=== PATIENT | male | born 1970 | race Caucasian/White ===

== ENCOUNTER 2023-05-14 10:59 | Outpatient (CLI) | payer MEDICAID, SELFPAY ==
--- NOTE | 2023-05-14 11:08 | ECG_ITS ---
Measurements Intervals [place] Rate: 79 P: 50 NH: 132 QRS: -39 QRSD: 107 T: 73 QT: 381 QTc: 437 Interpretive Statements SINUS RHYTHM MARKED LEFT AXIS DEVIATION [QRS AXIS < -30] NO PREVIOUS ECG AVAILABLE FOR COMPARISON Electronically Signed On 05-14-2023 16:27:57 CDT by Tyler Zamudio M.D.
== END 2023-05-14 11:00 | disposition home or self-care (01) ==
PROVIDERS: Visit Provider Surgery
DX: Z01.818 Encounter for other preprocedural examination (principal); R93.1 Abnormal findings on diagnostic imaging of heart and coronary circulation; F17.210 Nicotine dependence, cigarettes, uncomplicated
CPT/HCPCS: 93005

== ENCOUNTER 2023-05-17 02:56 | Day surgery (SDC) | payer MEDICAID, SELFPAY ==
[2023-05-10 12:34] VITALS: BMI 30.2
--- NOTE | 2023-05-10 12:40 | PC.NURSE ---
Report to the Outpatient Waiting Room, entrance under the green pavilion located off [facility], at time _0600_ on date _[id number]_. Planned Procedure Time: _0730_. Time changes happen often and if your time is changed the preop area will call you the afternoon before. - You and your visitor will be asked to self-screen and do not enter if you have any COVID symptoms. - A mask is optional within the hospital at this time. Patients may have clear liquids (water, carbonated beverages, clear teas, apple juice) until 3 hours prior to surgery with a maximum of 20 ounces. - No food from midnight until time of surgery Take the following medications with a SIP of water the morning of surgery: ___None DO NOT STOP ANY OF YOUR OTHER PRESCRIPTION MEDICATIONS PRIOR TO SURGERY ?EXCEPT THE FOLLOWING Medications to discontinue per physician None Date to take last dose Please no make-up, nail german, hairspray, perfume, deodorant, or body powder the day of surgery. No jewelry (including any body piercings) or valuables the day of surgery, leave them at home. Please take a shower or bath the night before, or the morning of, surgery with an antibacterial soap. Wear comfortable, loose fitting clothing. - Jewelry must be removed prior to entering the operating room. Rings and piercings that are not removed may be cut off. - The hospital will not accept responsibility for valuables. - Please leave all valuables, including medications, at home the day of surgery. If you are going home after surgery, a licensed driver examiner must drive you home. - NO public transportation without another adult if you receive anesthesia. - We recommend that an adult stay with you for 24 hours following discharge. - We also recommend that you do not drive, make important decision, drink alcoholic beverages, or take any drugs that were not prescribed by your health care provider for at least 24 hours after your discharge time. Follow any additional instructions given to you from your surgeon. If you or anyone in your household have experienced Covid symptoms in the past week, please notify your surgeon or the nurse liaison at the phone number below for possible testing. Telephone instructions given to _Patient__and asked if any additional questions and then verbalized understanding. Patient advised to call surgeon office or pre surgery nurse liaison [phone] if any additional questions.
--- NOTE | 2023-05-16 14:03 | WPDANESEPPF ---
Anes - Initial Pre Proc Eval Procedure: Operation Date: 05/17/23 07:30 Proposed Procedures p Open Right Inguinal Hernia Repair with Mesh - Poncho Macias MD Date/Time: 05/16/23 14:03 Surgeon: Poncho Macias MD Pre Op Diagnosis: Rt Ing Hernia Patient Data Age: 53 Gender: M Height: 1.78 m Weight: 95.5 kg Allergies Allergy/AdvReac Type Severity Reaction Status Date / Time Penicillins Allergy Unknown Rash Verified 05/10/23 12:33 Home Medications Medication Instructions Recorded Confirmed Type No Home Medications 05/08/23 05/10/23 History Patient hx anesthesia problems: none Family hx anesthesia problems: none Results Review: All pre-operative results and documents have been reviewed as part of the pre-operative evaluation. [facility] Surgical History Surgical History (Updated 05/08/23 @ 14:21 by Camille Gordon MA) History of gastric surgery Social History Social History (Updated 05/08/23 @ 14:22 by Camille Gordon MA) Smoking packs per day: 1 Smoking cigarettes per day: 20.0 Years smoked: 30 Smoking pack-years: 30.00 Smoking status: Former smoker Tobacco type: cigarettes Smoking end date: 05/10/17 Alcohol intake: current Living arrangements: with family Spiritual care concerns: No Anes - Eval Final PreProcedure Day of Procedure 05/16/23 14:03 Patient weight: obese Heart: regular rate and rhythm Lungs: clear to auscultation Airway: Mallampati scale class II Neurological: alert and oriented Last oral intake: >/= 8 hours ASA classification: II Emergent: no Anesthetic plan: proceed Anesthesia type and monitoring: general LMA and standard monitoring Results Review: All pre-operative results and documents have been reviewed as part of the pre-operative evaluation. Informed Consent: The patient's anesthetic plan and its attendant risks and benefits were discussed with the patient/family/POA. Questions were solicited and answers provided to the satisfaction of the patient/family/POA.
[2023-05-17] VITALS (8 sets, daily range): BP systolic 121–138; BP diastolic 85–98; PULSE 61–65; RESP 12–19; TEMP 36.4–36.6; O2SAT 93–100
--- NOTE | 2023-05-17 06:59 | SUR.PREOP ---
patient and family aware of about one and a half hour delay starting today, understanding stated by both
[2023-05-17] MEDS: ACETAMINOPHEN 500 MG TABLET 1000 MG PO (08:10)
[2023-05-17] MEDS: KETOROLAC 15 MG/ML VIAL (*BKC) IV PUSH ×2 (08:10→10:33)
[2023-05-17] MEDS: LACTATED RINGERS 1,000 ML 30 ML IV CONT ×2 (08:49→11:07)
--- NOTE | 2023-05-17 08:57 | WPDHPUPDATE1 ---
History and Physical Update Update Date/Time: 05/17/23 08:57 History and Physical has been reviewed, including an updated exam of the patient. There are NO changes in the patient's condition. Risks, benefits, and alternatives have been discussed and questions answered. Patient agrees to proceed with procedure.
[2023-05-17] MEDS: ceFAZolin 2 GM/D5W 50 ML 2 GM/50 ML BAG IVPB (09:17)
[2023-05-17] MEDS: BUPivacaine HCL 0.5% 10 ML AMP 30 ML INFILTRATE (10:42)
[2023-05-17] MEDS: LIDO 1%/EPINEPHRINE 1:100,000 50 ML VIAL 30 ML INFILTRATE (10:43)
--- NOTE | 2023-05-17 11:08 | W.PM.PROC2 ---
Procedure Note - Detailed Date of Procedure 05/17/23 Pre-op Diagnosis Reducible right inguinal hernia Post-op Diagnosis Same (Reducible indirect right inguinal hernia) Procedure Performed Open right inguinal hernia repair with Ultrapro hernia system mesh Surgeon Poncho Macias MD Physics Department Chair Arcenio Greenberg SA Anesthesia General Indications Patient is a 53-year-old gentleman who presented with a reducible right inguinal hernia which is very painful. He presents now for elective repair with mesh reinforcement. Findings Moderate-sized indirect right inguinal hernia. No evidence of a direct defect was seen. Description of Procedure After informed consent was obtained patient was brought to the operating room was placed supine position and then general LMA anesthesia was administered. The lower abdomen and bilateral groin regions were then prepped and draped usual sterile fashion. A time-out was then performed correctly identifying the patient as well as procedure to be performed. The site marking was identified and he was given preoperative IV antibiotics. I then made a transverse incision in the right groin region about 2 finger breaths above the palpated right pubic tubercle. Dissection was then carried down through the subcutaneous tissue Roque's fascia electrocautery. External oblique aponeurosis was then encountered and that was opened with a scalpel and electrocautery dissection out through the external ring. I then the external oblique aponeurosis from the underlying internal oblique and cremasteric muscle fibers with electrocautery and scissor dissection. The spermatic cord was then isolated at the pubic tubercle blunt finger dissection a Brian drain was placed around the cord for retraction. I then further divided cremaster muscle fibers to further mobilize the cord structures. I inspected the floor of the inguinal canal and there is no evidence of a direct inguinal defect. I then split the cremasteric muscle fibers on the spermatic cord electrocautery lengthwise and explored the cord identified the vas deferens and testicular vessels. These were preserved without injury. I identified a cord lipoma and a indirect inguinal hernia sac coming out through the dilated internal ring. The cord lipoma was dissected free of the other cord structures at the level internal ring and then ligated and the distal portion was resected and discarded. It was ligated with a 3-0 Vicryl suture. The indirect inguinal hernia sac was then dissected free of the other cord structures as well at the level internal ring and then was reduced into the preperitoneal space through the dilated internal ring. Then with retractors into the dilated internal ring I was able to develop the preperitoneal space deep to the inferior epigastric vessels with blunt finger and sponge dissection. When this was complete I then used a large oval ultra pro hernia system mesh for the repair. The underlay portion of the mesh was placed through the dilated internal ring into the preperitoneal space deep to the inferior epigastric vessels. It was spread out to cover the whole myopectineal orifice. The cylindrical connecting portion of the mesh came through the dilated internal ring and then the overlay portion of mesh was placed over the floor of the inguinal canal. The overlay mesh was secured to the tissues at the pubic tubercle utilizing interrupted 2-0 Vicryl sutures. A slit was then cut in the overlay patch to accommodate the cord structures in the edges of the patch were reapproximated around the cord utilizing interrupted 2-0 Vicryl sutures. The tail of the mesh patch was then tucked underneath the external oblique aponeurosis proximally. I then further secured the medial edge of the overlay mesh patch to the internal oblique muscle fibers utilizing interrupted 2-0 Vicryl sutures in laterally the overlay patch was secured to the shelving edge of the external oblique aponeurosis utili
[2023-05-17] MEDS: fentaNYL CITRATE INJ (*CRX) 100 MCG/2 ML VIAL 25 MCG IV PUSH ×2 (11:25→11:50)
== END 2023-05-17 12:54 | disposition home or self-care (01) ==
PROVIDERS: Visit Provider Surgery
PROC: (CPT 49505; principal; 2023-05-17 07:30)
DX: K40.90 Unilateral inguinal hernia, without obstruction or gangrene, not specified as recurrent (principal); Z98.84 Bariatric surgery status; Z87.891 Personal history of nicotine dependence; E66.9 Obesity, unspecified; Z68.30 Body mass index [BMI] 30.0-30.9, adult
CPT/HCPCS: 49505; A9270; C1781; J0690; J1100; J1885; J2250; J2405; J2704; J3010; J7120